=== PATIENT | male | born 2000 | race African-American/Black ===

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

== ENCOUNTER 2022-07-19 14:40 | Emergency (ER) | payer BC, SELFPAY ==
[2022-07-19 14:56] VITALS: BP 127/80; PULSE 56; RESP 17; TEMP 36.2; O2SAT 98
--- NOTE | 2022-07-19 15:04 | ED.URI ---
HPI - URI/Sore Throat General Stated Complaint: HEADACHE/CONGESITON/STOMACH PAIN/NAUSEA/SNEEZING Time Seen by Provider: 07/19/22 15:05 Source: patient and RN notes reviewed Mode of arrival: ambulatory Limitations: no limitations History of Present Illness HPI Narrative: 21-year-old male presented for complaint of sinus congestion from 1 week. States he had a scratchy throat, headache and sneezing at onset which has improved. Reports concern about the frequency of the cough, and today had a long coughing spell. Taking DayQuil and NyQuil for symptoms. Reports sick contacts at work. Denies sob, wheezing, n/v/d/f/c. Patient vapes. Also reports he cannot tolerate taking pills by mouth. Endorses for many years he has reflux symptoms following taking any pill medication. Will f/u with pcp. MD elicited complaint: cough Related Data Home Medications Medication Instructions Recorded Confirmed No Home Medications 02/02/20 02/02/20 Allergies Allergy/AdvReac Type Severity Reaction Status Date / Time No Known Allergies Allergy Verified 07/19/22 15:10 Review of Systems Review of Systems: CONSTITUTIONAL: Denies malaise, chills, sweats, fever EYES: Denies visual changes, redness, or discharge ENT: Reports rhinorrhea, congestion, denies sinus pain, otalgia, sore throat CARDIOVASCULAR: Denies chest pain, palpitations, edema RESPIRATORY: Reports cough, post nasal drainage. Denies dyspnea GASTROINTESTINAL: Denies abdominal pain, nausea, vomiting, diarrhea SKIN: Denies rash or itching MUSCULOSKELETAL: Denies myalgia NEUROLOGIC: Denies headache PMFSH Past Medical History Medical History Asthma Fracture of left wrist Social History Social History Tobacco type: e-cigarettes/vaping Substance use: never Living arrangements: with family Occupation/Education: student Gender identity (if verbalized by the patient): Male Exam Narrative: GENERAL: well-appearing, nontoxic HEAD: Normocephalic EYES: PERRLA, conjunctivae clear ENT: Mucous membranes moist. Minimal nasal congestion. TMs pearly scanlon with dull light reflex bilaterally; no tragal tenderness. Oropharynx without redness, lesions or exudate, no drooling, no hoarseness, no trismus, uvula midline. NECK: Supple. No lymphadenopathy CHEST: Clear to auscultation, breath sounds equal. No wheezing, rhonchi, rales, or stridor. No respiratory distress, speaks in full sentences. HEART: Regular rate and rhythm. No murmur heard. SKIN: Warm, dry, no rash. NEURO: Alert and oriented x3. PSYCH: Normal mood and affect Course Course Emergency Course: Patient is aware of diagnosis, understands and agrees to treatment plan. Anticipatory guidance given. Patient agrees to follow-up as directed and is aware of reasons to seek care at the emergency department. Portions of this record may have been created with voice recognition software Level of Care: Express Care Visit Vital Signs Vital signs: reviewed MDM - URI/Sore Throat MDM Narrative Medical decision making narrative: Discussed physical exam findings. Patient planned to take covid test at home today. Declines strep test. Advised supportive measures and signs/symptoms to go to the ER. Pt is appropriate for outpt treatment and f/u. We discussed possible GI specialist for symptoms after taking pills by mouth. will f/u with pcp. Differential Diagnosis Differential diagnosis: Likely upper respiratory infection, sinusitis and viral infection Discharge Plan Discharge Clinical Impression: Upper respiratory infection Patient Disposition: Home, Self-Care Condition: Stable Instructions: Antibiotic Form, Upper Respiratory Infection (ED) Additional Instructions: Recommend Flonase spray and Zyrtec (or Claritin/Sasha) over the counter Cough syrup may cause drowsiness; avoid driving or take it at night t
== END 2022-07-19 15:22 | disposition home or self-care (01) ==
PROVIDERS: Emergency Provider Nurse Practitioner Family
DX: J06.9 Acute upper respiratory infection, unspecified (principal); F17.290 Nicotine dependence, other tobacco product, uncomplicated; J45.909 Unspecified asthma, uncomplicated
CPT/HCPCS: 99211; G0463